=== PATIENT | male | born 2000 | race American Indian/Alaskan Native ===

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

== ENCOUNTER 2022-11-02 20:36 | Emergency (ER) | payer OTHER ==
[~2022-11-02] VITALS: Ht 190.5 cm; Wt 92.7 kg
--- OUTSIDE RECORDS SUMMARY | ~2022-11-02 | XMS | Continuity of Care Document ---
Demographics + + + | Address | [address] | | | [place] [address] | + + + | Preferred Language | Unknown | + + + | Marital Status | Never | + + + | Evangelical Affiliation | Unknown | + + + | Race | or | + + + | Ethnic Group | Unknown | + + + Author + + + | Author | [facility] | + + + | Organization | [facility] | + + + | Address | [address] | | | [place] [address] | + + + | Phone | | + + + Care Team Providers + + + + | Care Pv Installer Tech Name | Role | Phone | + + + + Unavailable | Unavailable | + + + + Allergies and Intolerances + + + + + + | date | description | facility | reaction | severity | + + + + + + | (no date) | No Known Drug | [facility] | (no reaction) | (no severity) | | | Allergies | | | | + + + + + + Encounters No information. Functional Status No information. Immunizations No information. Medications No information. Problems No information. Procedures No information. Results/Labs No information. Social History No information. Vital Signs No information."
--- OUTSIDE RECORDS SUMMARY | ~2022-11-02 | XMS | Continuity of Care Document ---
Demographics + + + | Address | [address] | | | [place] [address] | + + + | Preferred Language | Unknown | + + + | Marital Status | Never | + + + | Taoist Affiliation | Unknown | + + + | Race | or | + + + | Ethnic Group | Unknown | + + + Author + + + | Author | [facility] | + + + | Organization | [facility] | + + + | Address | [address] | | | [place] [address] | + + + | Phone | | + + + Care Team Providers + + + + | Care Cement Sprayer Helper Name | Role | Phone | + [...]
[~2022-11-02 20:36] MED LIST changes: +AMOXICILLIN500 MG PO
--- OUTSIDE RECORDS SUMMARY | 2022-11-02 20:45 | XMS ---
PreManage Notification: TRICE PABON [employer] Events 1 event(s) in the past 18 months Most recent security events: Elopement at [facility] 07/18/2022 21:51 - Patient eloped before treatment completed. - Patient with suicidal and/or homicidal ideations eloped. - Patient eloped with IV in place. Details: Patient LWOB. CRITERIA MET - Group Notification - [facility] - 2 Visits in 30 Days CARE PROVIDERS [facility] 07/21/2022-[facility] PHONE: [phone] -[place]- Dentist: Orthotist Or Prosthetist [facility] PHONE: [phone] Reginald Miner DO [facility] Current PHONE: Unknown Curt has no Care Guidelines for this patient. [place] VISIT COUNT (12 MO.) 3 [facility] TOTAL 3 NOTE: Visits indicate total known visits. ED/UCC VISIT TRACKING (12 MO.) 11/02/2022 20:38 [facility] [place] TYPE: Emergency COMPLAINT: - FINGER LAC 11/02/2022 16:08 [facility] TYPE: Emergency COMPLAINT: - L MIDDLE FINGER LACERATION 07/18/2022 21:51 [facility] [place] TYPE: Emergency COMPLAINT: - LIGHTHEADED,POSS ANXIETY,SOB INPATIENT VISIT TRACKING (12 MO.) No inpatient visits to display in this time frame [email or web address]
[2022-11-02] MEDS ORDERED: CEPHALEXIN500 M1 PO (22:04)
[2022-11-02 22:20] VITALS: BP 113/57
== END 2022-11-02 22:20 | disposition home or self-care (01) ==
LOC: ED 20:36
DX: S61.213A Laceration without foreign body of left middle finger without damage to nail, initial encounter (principal); W29.3XXA Contact with powered garden and outdoor hand tools and machinery, initial encounter
CPT/HCPCS: 12002; 90471; 90715; 99282-25; A9270